=== PATIENT | male | born 1995 | race Caucasian/White ===

== ENCOUNTER 2017-12-28 11:53 | Emergency (ER) | payer OTHER ==
[~2017-12-28] VITALS: Ht 177.8 cm; Wt 79.4 kg
[~2017-12-28 11:53] MED LIST: AFRIN PUMPMIST15 ML NASB; AMOXIL 875 MG875 MG PO; DURICEF500 MG PO; MOTRIN 600 MG600 MG PO; TYLENOL #31 TAB PO
[2017-12-28 11:58] VITALS: BP 130/72
--- NOTE | 2017-12-28 14:03 | ED HEAD/FACIAL INJ COMPLAINT ---
History of Present Illness General Chief Complaint: General Adult Stated Complaint: SWOLLEN/PAINFUL LIP Source: patient Exam Limitations: no limitations Vital Signs & Intake/Output Vital Signs & Intake/Output Vital Signs Date Time Temp Pulse Resp B/P B/P Pulse O2 O2 Flow FiO2 Mean Ox Delivery Rate 12/28 1158 98.0 83 20 130/72 97 Room Air ED Intake and Output 12/29 0000 12/28 1200 Intake Total Output Total Balance Patient 175 lb Weight Weight Reported by Patient Measurement Method Allergies Coded Allergies: NO KNOWN ALLERGIES (08/15/15) Reconcile Medications Amoxicillin 875 MG TABLET 1 TAB PO BID ORQAL LACERATION Ibuprofen 800 MG TABLET 1 TAB PO TID PRN PAIN Triage Note: FELL IN [facility] LAST NIGHT AND BIT HIS LIP. NO ACTIVE BLEEDING Triage Nurses Notes Reviewed? yes Onset: Abrupt Severity: mild, moderate Severity Numbers: 6 Location: upper lip Method of Injury: fall Loss of Consciousness: no loss of consciousness HPI: 22-year-old male with no past medical history of present's for evaluation of a laceration to his left upper lip. Patient states that last night he was at a concert in a mosh pit when he fell hit his lip on the ground. There was no loss of consciousness. He reports some abrasions to his bilateral hands but no other injuries. He states that the lip initially was very swollen and bleeding but has improved. He still reports that it is painful and somewhat swollen. He is unsure of his last tetanus shot. No difficulty swallowing no drooling. No shortness of breath. No other injuries not taking any medicine for this. (Dejan Mathur) Past History Travel History Traveled to [place] past 21 day No Medical History Any Pertinent Medical History? 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 No (Dejan Mathur) Review of Systems Review of Systems Constitutional: Reports: no symptoms. EENTM: Reports: mouth pain. Respiratory: Reports: no symptoms. Cardiovascular: Reports: no symptoms. GI: Reports: no symptoms. Genitourinary: Reports: no symptoms. Musculoskeletal: Reports: no symptoms. Skin: Reports: see HPI (abrasions ). Neurological/Psychological: Reports: no symptoms. Hematologic/Endocrine: Reports: no symptoms. Immunologic/Allergic: Reports: no symptoms. All Other Systems: Reviewed and Negative (Dejan Mathur) Physical Exam Physical Exam General Appearance: well developed/nourished, no apparent distress, alert, awake Head: atraumatic, normal appearance Eyes: Bilateral: normal appearance, PERRL, EOMI. Ears, Nose, Throat: normal pharynx, normal ENT inspection, hearing grossly normal, there is a 0.5 cm laceration to the lateral aspect of the left upper lip. No active bleeding. There is some surrounding soft tissue swelling. There evidence of wound healing present with granulation tissue no discharge or erythema patient handling secretions Neck: normal inspection, supple, full range of motion Respiratory: no respiratory distress Back: normal inspection, normal range of motion, no vertebral tenderness Extremities: normal inspection, normal range of motion, no edema Cranial Nerves: normal hearing, normal speech, PERRL Coordination/Gait: normal gait Motor/Sensory: no motor/sensory deficits Skin: normal color, warm/dry, there are superficial abrasions to the bilateral hands and elbows. No lacerations or active bleeding no joint swelling for range of motion intact (Dejan Mathur) Progress Differential Diagnosis: ICH, skull fracture, laceration, abrasion, fracture, sprain Plan of Care: Patient seen and evaluated. He has a laceration the lateral aspect of left lip. Occurred last night greater than 12 hours ago. Is already showing evidence of healing with granulation tissue present. No active bleeding. Explained to patient that this cannot be sutured at this time as it will not heal. Tetanus was updated. Patient will be covered with amoxicillin for infection prophylaxis. Advised rest and apply ice 15-20 minutes every few hours use a nonalcohol based mouthwash twice daily. Discussed return precautions including evidence of infection. Patient appears well he agrees. (Dejan Mathur) Departure Departure Disposition: HOME OR SELF CARE Condition: Stable Clinical Impression Primary Impression: Lip laceration Qualifiers: Encounter type: initial encounter Qualified Code: S01.511A - Laceration without foreign body of lip, initial encounter Referrals: Patient Has No Primary Care Dr (PCP/Family) Additional Instructions: Rest, apply ice 15-20 minutes every few hours. USE A NON-alcoholic mouthwash twice a day. Take antibiotics as directed for the full course. [place] for signs of infection like redness swelling discharge or pain. Make a follow-up appointment with provided primary care doctor in a few days for wound check. Monitor symptoms return with any concerns. Departure Forms: Customer Survey General Discharge Information Prescriptions: Current Visit Scripts Ibuprofen 1 TAB PO TID PRN PAIN #30 TAB Amoxicillin 1 TAB PO BID #20 TAB (Dejan Mathur) PA/DATA RECOVERY PLANNER Co-Sign Statement Statement: ED Attending supervision documentation- I saw and evaluated the patient. I have also reviewed all the pertinent lab results and diagnostic results. I agree with the findings and the plan of care as documented in the PA's/DATA RECOVERY PLANNER's documentation. x I have reviewed the ED Record and agree with the PA's/DATA RECOVERY PLANNER's documentation. [] Additions or exceptions (if any) to the PAs/DATA RECOVERY PLANNER's note and plan are summarized below: [] (Ulysses CALLAWAY,Amrik)
[2017-12-28] MEDS ORDERED: IBUPROFEN800 M1 PO (14:22)
[2017-12-28] MEDS ORDERED: AMOXICILLIN875 M1 PO (14:22)
== END 2017-12-28 14:27 ==
LOC: ERH 11:53
DX: S01.511A Laceration without foreign body of lip, initial encounter (principal); X58.XXXA Exposure to other specified factors, initial encounter; Y92.9 Unspecified place or not applicable; Y93.9 Activity, unspecified
CPT/HCPCS: 90471; 90714